=== PATIENT | male | born 1965 | race Two or more races ===

== ENCOUNTER 2024-02-28 17:17 | Emergency (ER) | payer OTHER ==
[~2024-02-28] VITALS: Ht 170.2 cm; Wt 93.4 kg
[2024-02-28] MEDS ORDERED: ATORVASTATIN CA20 MG PO (19:06)
[2024-02-28] MEDS ORDERED: PEPCID AC20 MG (19:06)
[2024-02-28] MEDS ORDERED: KETOROLAC TROMETHAMINE 60 MG VIAL IM ONE (19:45)
[2024-02-28] MEDS ORDERED: ORPHENADRINE CITRATE 30 MG/ML AMPUL IM ONE (19:45)
[2024-02-28] MEDS ORDERED: DICLOFENAC SODI50 MG PO (21:15)
[2024-02-28] MEDS ORDERED: NORFLEX100MG PO (21:15)
== END 2024-02-28 21:27 ==
LOC: ER 17:19
DX: M54.16 Radiculopathy, lumbar region (principal)